=== PATIENT | female | born 1970 | race Caucasian/White ===

== ENCOUNTER 2016-07-16 07:08 | Emergency (ER) | payer OTHER ==
[2016-07-16 07:18] VITALS: BP 159/89; PULSE 85; TEMP 98.1; BMI 24.2
[2016-07-16] MEDS ORDERED: IBUPROFEN 600 MG TABLET (FP) PO ONE ×2 (07:49→08:01)
[2016-07-16] MEDS ORDERED: DIPHTH,PERTUSS(ACELL),TET VAC 0.5 ML VIAL IM ONE (07:49)
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
[2016-07-16] MEDS ORDERED: BACITRACIN 0.9 GM PACKET ONE (08:35)
== END 2016-07-16 09:00 | disposition home or self-care (01) ==
LOC: JER 07:08
PROC: 3E0234Z Introduction of Serum, Toxoid and Vaccine into Muscle, Percutaneous Approach (ICD-10-PCS; principal; 2016-07-16)
DX: S80.02XA Contusion of left knee, initial encounter (principal); V48.4XXA Person boarding or alighting a car injured in noncollision transport accident, initial encounter; Y92.414 Local residential or business street as the place of occurrence of the external cause; Y93.89 Activity, other specified
CPT/HCPCS: 73560-TC-LT; 99282-25

== ENCOUNTER 2017-03-05 02:32 | Emergency (ER) | payer OTHER ==
[2017-03-05 03:25] VITALS: BP 132/92; PULSE 87; BMI 22.1
[2017-03-05] MEDS ORDERED: ONDANSETRON 4 MG/2 ML VIAL IVPUSH ONE (04:06)
[2017-03-05] MEDS ORDERED: SODIUM CHLORIDE 0.9% 1000 ML INFUS.BAG IV ONE (04:06)
[2017-03-05] MEDS ORDERED: ONDANSETRON 4 MG/2 ML VIAL ONE ×2 (04:08)
[2017-03-05 04:23] LABS: BASOPHIL 0.2 % (0-2.0); EOSINOPHIL 0.4 % (0-4.5); MCH 27.6 pg (25.7-33.7); MCHC 33.1 g/dl (32.0-36.0); MEAN CELL VOLUME 83.3 fl (80-96); MEAN PLT VOLUME 8.2 fl (7.5-11.1); NEUTROPHILS 84.2 % (42.8-82.8); PLATELET COUNT 319 K/MM3 (134-434); RDW 13.7 % (11.6-15.6); WHITE BLOOD COUNT 11.5 K/mm3 (4.0-10.0)
[2017-03-05 04:51] LABS: ALBUMIN 3.9 g/dl (3.4-5.0); ALK PHOS 79 U/L (45-117); ANION GAP 9 (8-16); BILIRUBIN,TOTAL 0.4 mg/dL (0.2-1.0); CALCIUM 8.4 mg/dL (8.5-10.1); CO2 28 mmol/L (21-32); CREATININE 0.8 mg/dL (0.55-1.02); GLUCOSE,RANDOM 95 mg/dL (74-106); SGOT/AST 12 U/L (15-37); SGPT/ALT 22 U/L (12-78); TOT PROT 6.6 g/dl (6.4-8.2)
[2017-03-05] MEDS ORDERED: POTASSIUM CHLORIDE TABS 20 MEQ TABLET.ER (FP) PO ONE ×2 (04:54→05:29)
[2017-03-05 05:22] LABS: URINE APPEARANCE SLCLOUDY; URINE BILIRUBIN NEGATIVE (NEGATIVE); URINE BLOOD NEGATIVE (NEGATIVE); URINE COLOR YELLOW; URINE GLUCOSE (UA) NEGATIVE (NEGATIVE); URINE KETONE NEGATIVE (NEGATIVE); URINE LEUK ESTERASE NEGATIVE (NEGATIVE); URINE NITRITE NEGATIVE (NEGATIVE); URINE PROTEIN NEGATIVE (NEGATIVE); URINE UROBILINOGEN NEGATIVE mg/dL (0.2-1.0)
--- NOTE | 2017-03-05 05:33 | PDOC ---
History of Present Illness - General Chief Complaint: Nausea/Vomiting Stated Complaint: VOMITING Time Seen by Provider: 03/05/17 03:15 - History of Present Illness Initial Comments: 03/05/17 05:23 CHIEF COMPLAINT: vomiting HISTORY OF PRESENT ILLNESS: 47 yo F with no PMH presents to ED with vomiting since 1 pm today. Patient reports that "it came out of nowhere" and she lost count of how many times she vomited. She denies any diarrhea, constipation, or rectal bleeding. She denies any fever but reports that she feels "kind of like chills" right now. She states that she ate chicken early this evening but has not been able to keep anything down. Her LMP was approximately 9 years ago. PAST MEDICAL HISTORY: Denies past medical history FAMILY HISTORY: Denies SOCIAL HISTORY:Denies tobacco, alcohol, illicit drug use. SURGICAL HISTORY: Denies ALLERGIES: No known drug allergies REVIEW OF SYSTEMS General/Constitutional: Denies fever or chills. Denies weakness, weight change. HEENT: Denies change in vision. Denies ear pain or discharge. Denies sore throat. Cardiovascular: Denies chest pain or shortness of breath. Respiratory: Denies cough, wheezing, or hemoptysis. Gastrointestinal: Vomiting since this afternoon. Denies diarrhea or constipation. Denies rectal bleeding. Genitourinary: Denies dysuria, frequency, or change in urination. Musculoskeletal: Denies joint or muscle swelling or pain. Denies neck or back pain. Skin and breasts: Denies rash or easy bruising. Neurologic: Denies headache, vertigo, loss of consciousness, or loss of sensation. PHYSICAL EXAM General Appearance: Well-appearing, appropriately dressed. No apparent distress , no intoxication. HEENT: EOMI, PERRLA, normal ENT inspection, normal voice, TMs normal, pharynx normal. No conjunctival pallor. No photophobia, scleral icterus. Neck: Supple. Trachea midline. No tenderness, rigidity, carotid bruit, stridor , lymphadenopathy, or thyromegaly. Respiratory/Chest: Lungs CTAB. No shortness of breath, chest tenderness, respiratory distress, accessory muscle use. No crackles, rales, rhonchi, stridor , wheezing, dullness Cardiovascular: RRR. S1, S2. No JVD, murmur, bradycardia, tachycardia. Vascular Pulses: Dorsalis-Pedis (R): 2+, Dorsalis-Pedis (L): 2+ Gastrointestinal/Abdominal: Normal bowel sounds. Abdomen soft, non-distended. No tenderness or rebound tenderness. No organomegaly, pulsatile mass, guarding , hernia, hepatomegaly, splenomegaly. Lymphatic: No adenopathy, tenderness. Musculoskeletal/Extremities: Normal inspection. FROM of all extremities, normal capillary refill. Pelvis Stable. No CVA tenderness. No tenderness to extremities, pedal edema, swelling, erythema or deformity. Integumentary: Appropriate color, dry, warm. No cyanosis, erythema, jaundice or rash Neurologic: juvenile detention officer II-XII intact. Fully oriented, alert. Appropriate mood/affect. Motor strength 5/5. No appreciable EOM palsy, facial droop or sensory deficit. Past History - Past Medical History Allergies/Adverse Reactions: Allergies Allergy/AdvReac Type Severity Reaction Status Date / Time No Known Allergies Allergy Verified 03/05/17 03:24 Home Medications: Ambulatory Orders Ondansetron [Zofran *Odt*] 8 mg SL BID PRN #14 od.tablet 03/05/17 - Surgical History Cardiac Surgery: Yes (asd repair) - Psycho/Social/Smoking Cessation Hx Anxiety: No Suicidal Ideation: No Smoking History: Never smoked Have you smoked in the past 12 months: No Information on smoking cessation initiated: No Hx Alcohol Use: No Drug/Substance Use Hx: No Substance Use Type: None *Physical Exam - Vital Signs Last Vital Signs Temp Pulse Resp BP Pulse Ox 87 14 132/92 99 03/05/17 03:24 03/05/17 03:24 03/05/17 03:24 03/05/17 03:24 ED Treatment Course - LABORATORY CBC & Chemistry Diagram: 03/05/17 04:15 03/05/17 04:15 - ADDITIONAL ORDERS Additional order review: Laboratory Results 03/05/17 03/05/17 03/05/17 05:12 04:15 04:15 Sodium 142 Potassium 3.3 L Chloride 105 Carbon Dioxide 28 Anion Gap 9 BUN 13 Creatinine 0.8 Creat Clearance w eGFR > 60 Random Glucose 95 Calcium 8.4 L Total Bilirubin 0.4 AST 12 L ALT 22 Alkaline Phosphatase 79 Total Protein 6.6 Albumin 3.9 Lipase 220 Urine Color Yellow Urine Appearance Slcloudy Urine pH 5.0 Urine Protein Negative Urine Glucose (UA) Negative Urine Ketones Negative Urine Blood Negative Urine Nitrite Negative Urine Bilirubin Negative Urine Urobilinogen Negative Ur Leukocyte Esterase Negative 03/05/17 04:15 RBC 4.90 MCV 83.3 MCHC 33.1 RDW 13.7 MPV 8.2 Neutrophils % 84.2 H Lymphocytes % 9.0 Monocytes % 6.2 Eosinophils % 0.4 Basophils % 0.2 - Medications Given in the ED: ED Medications Discontinued Medications Generic Name Dose Route Start Last Admin Trade Name Dodie PRN Reason Stop Dose Admin Ondansetron HCl 8 mg 03/05/17 04:06 03/05/17 04:21 Zofran Injection IVPUSH 03/05/17 04:07 8 mg ONCE ONE Administration Sodium Chloride 1,000 ml 03/05/17 04:06 03/05/17 04:20 Normal Saline - IV 03/05/17 04:07 1,000 ml ONCE ONE Administration Medical Decision Making - Medical Decision Making 03/05/17 05:33 47 yo F with no PMH presents to ED with vomiting since 1 pm today. -CBC, CMP, lipase -UA, Ucx Labs - WBC 11.4, K+ 3.3 K-Dur po *DC/Admit/Observation/Transfer Diagnosis at time of Disposition: Vomiting Qualifiers: Vomiting type: unspecified Vomiting Intractability: non-intractable Nausea presence: with nausea Qualified Code(s): R11.2 - Nausea with vomiting, unspecified - Discharge Dispostion Disposition: HOME Condition at time of disposition: Stable Admit: No - Prescriptions Prescriptions: Ondansetron [Zofran *Odt*] 8 mg SL BID PRN #14 od.tablet PRN Reason: Nausea And/Or Vomiting - Referrals Referrals: Domingo Thibodeaux MD [Primary Care Provider] - Hernesto Bennett MD [Staff Physician] - - Patient Instructions Printed Discharge Instructions: DI for Vomiting -- Adult Additional Instructions: Please take medication as prescribed. Follow up with Dr. Thibodeaux by the end of this week. If you experience persistent vomiting, fever, chills, severe abdominal pain, rectal bleeding, or any new or worsening symptoms, please return to the ER. - Post Discharge Activity Work/School Note: Back to Work
== END 2017-03-05 06:21 | disposition home or self-care (01) ==
LOC: JER 02:32
PROC: 3E033GC Introduction of Other Therapeutic Substance into Peripheral Vein, Percutaneous Approach (ICD-10-PCS; principal; 2017-03-05)
PROC: 3E0337Z Introduction of Electrolytic and Water Balance Substance into Peripheral Vein, Percutaneous Approach (ICD-10-PCS; 2017-03-05)
DX: R11.2 Nausea with vomiting, unspecified (principal); I51.9 Heart disease, unspecified
CPT/HCPCS: 36415; 80053; 81003; 83690; 84703; 85025; 87086; 99282-25

== ENCOUNTER 2017-06-18 18:05 | Emergency (ER) | payer OTHER ==
[2017-06-18 18:19] VITALS: PULSE 100; TEMP 98.5; BMI 22.1
[2017-06-18] MEDS ORDERED: ONDANSETRON 4 MG/2 ML VIAL IVPB ONE (18:28)
[2017-06-18] MEDS ORDERED: SODIUM CHLORIDE 1,000 ML IV STA (18:28)
--- NOTE | 2017-06-18 18:48 | PDOC ---
History of Present Illness - General Chief Complaint: Cold Symptoms Stated Complaint: WEAK BODY ACHES VOMITING Time Seen by Provider: 06/18/17 18:14 - History of Present Illness Initial Comments: 06/18/17 18:50 "The patient is a 47-year-old female, with no significant past medical history, who presents to the ED with nausea, vomiting, body aches, generalized weakness and lightheadedness that began today. Patient reports vomiting 4x today; no blood was noted. She has not been able to keep down any solids or fluids due to the nausea. She also reports chills but denies having a fever. She experienced similar symptoms in the past and visited the ED where she was given zofran and discharged. She denies any recent sick contacts or recent travel. LMP was 10 years ago. She denies any diarrhea or abdominal pain. She denies any urinary symptoms. Denies CP/SOB. Denies GRIMES/neck pain. " Past History - Past Medical History Allergies/Adverse Reactions: Allergies Allergy/AdvReac Type Severity Reaction Status Date / Time No Known Allergies Allergy Verified 06/18/17 18:12 Home Medications: Ambulatory Orders NK [No Known Home Medication] 06/18/17 COPD: Yes - Surgical History Cardiac Surgery: Yes (asd repair) - Suicide/Smoking/Psychosocial Hx Smoking History: Never smoked Have you smoked in the past 12 months: No Information on smoking cessation initiated: No Hx Alcohol Use: No Drug/Substance Use Hx: No Substance Use Type: None Review of Systems - Review of Systems Comments:: 06/18/17 18:49 "GENERAL/CONSTITUTIONAL: No fever or chills. No weakness. HEAD, EYES, EARS, NOSE AND THROAT: No change in vision. No ear pain or discharge. No sore throat. CARDIOVASCULAR: No chest pain or shortness of breath. RESPIRATORY: No cough, wheezing, or hemoptysis. GASTROINTESTINAL: + vomiting, no diarrhea or constipation. GENITOURINARY: No dysuria, frequency, or change in urination. MUSCULOSKELETAL: No joint or muscle swelling or pain. No neck or back pain. SKIN: No rash NEUROLOGIC: No headache, vertigo, loss of consciousness, or change in strength/ sensation. ENDOCRINE: No increased thirst. No abnormal weight change. HEMATOLOGIC/LYMPHATIC: No anemia, easy bleeding, or history of blood clots. ALLERGIC/IMMUNOLOGIC: No hives or skin allergy. " *Physical Exam - Vital Signs Last Vital Signs Temp Pulse Resp BP Pulse Ox 98.5 F 100 H 16 163/100 97 06/18/17 18:07 06/18/17 18:07 06/18/17 18:07 06/18/17 18:07 06/18/17 18:07 - Physical Exam Comments: 06/18/17 18:49 "GENERAL: Awake, alert, and fully oriented, in no acute distress HEAD: No signs of trauma EYES: PERRLA, EOMI, sclera anicteric, conjunctiva clear ENT: Auricles normal inspection, hearing grossly normal, nares patent, oropharynx clear without exudates. Moist mucosa NECK: Nontender, no stepoffs, Normal ROM, supple, no lymphadenopathy, JVD, or masses LUNGS: Breath sounds equal, clear to auscultation bilaterally. No wheezes, and no crackles HEART: Regular rate and rhythm, normal S1 and S2, no murmurs, rubs or gallops ABDOMEN: Soft, nontender, normoactive bowel sounds. No guarding, no rebound. No masses EXTREMITIES: Normal range of motion, no edema. No clubbing or cyanosis. No cords, erythema, or tenderness NEUROLOGICAL: Cranial nerves II through XII intact. 5/5 strength and sensation in all extremities, Normal speech, normal gait, normal cerebellar function SKIN: Warm, Dry, normal turgor, no rashes or lesions noted. " Medical Decision Making - Medical Decision Making 06/18/17 18:46 47 F with no PMH presents to ER with vomiting x 1 day. Likely viral syndrome given associated bodyaches and generalized weakness. Pt with benign abdominal exam in ER. Unlikely to be acute intra-abdominal process. Pt with non-focal neuro exam, making intracranial process unlikely as well. Pt without any chest pain or SOB to suggest ACS. However, will consider r/o with trops if EKG is abnormal. - Labs, lipase, UA, UPT - EKG - IVF, zofran *DC/Admit/Observation/Transfer - Discharge Dispostion Condition at time of disposition: Stable - Referrals - Patient Instructions - Post Discharge Activity
[2017-06-18] MEDS ORDERED: ONDANSETRON 4 MG/2 ML VIAL ONE (18:49)
[2017-06-18 18:53] LABS: PH,URINE 7.5 (4.5-8); URINE APPEARANCE Clear; URINE BILIRUBIN Negative (NEGATIVE); URINE BLOOD Negative (NEGATIVE); URINE GLUCOSE (UA) Negative (NEGATIVE); URINE KETONE Negative (NEGATIVE); URINE LEUK ESTERASE Negative (NEGATIVE); URINE NITRITE Negative (NEGATIVE); URINE UROBILINOGEN 0.2 (0.2-1.0)
[2017-06-18 18:54] LABS: URINE COLOR YELLOW; URINE PROTEIN 2+ (NEGATIVE)
[2017-06-18 18:57] LABS: BASO % 0.7 % (0-2.0); EOS % 0.2 % (0-4.5); MCH 27.5 pg (25.7-33.7); MCHC 32.8 g/dl (32.0-36.0); MEAN CELL VOLUME 83.8 fl (80-96); MEAN PLT VOLUME 8.1 fl (7.5-11.1); PLATELET COUNT 332 K/MM3 (134-434); RDW 13.1 % (11.6-15.6); WHITE BLOOD COUNT 7.8 K/mm3 (4.0-10.8)
[2017-06-18 19:10] LABS: URINE WBC 0-2 (0-5)
[2017-06-18 19:11] LABS: URINE BACTERIA FEW /hpf (NEGATIVE); URINE RBC 0-2 /hpf (0-3)
--- NOTE | 2017-06-18 19:11 | PDOC ---
*Physical Exam - Vital Signs Last Vital Signs Temp Pulse Resp BP Pulse Ox 98.5 F 100 H 16 163/100 97 06/18/17 18:07 06/18/17 18:07 06/18/17 18:07 06/18/17 18:07 06/18/17 18:07 ED Treatment Course - LABORATORY CBC & Chemistry Diagram: 06/18/17 18:45 06/18/17 18:45 - ADDITIONAL ORDERS Additional order review: Laboratory Results 06/18/17 18:45 Urine Color Yellow Urine Appearance Clear Urine pH 7.5 Ur Specific [place] 1.020 Urine Protein 2+ H Urine Glucose (UA) Negative Urine Ketones Negative Urine Blood Negative Urine Nitrite Negative Urine Bilirubin Negative Urine Urobilinogen 0.2 Ur Leukocyte Esterase Negative 06/18/17 18:45 RBC 5.26 H MCV 83.8 MCHC 32.8 RDW 13.1 MPV 8.1 Neutrophils % 89.0 H Lymphocytes % 5.9 L Monocytes % 4.2 Eosinophils % 0.2 Basophils % 0.7 - Medications Given in the ED: ED Medications Discontinued Medications Generic Name Dose Route Start Last Admin Trade Name Freq PRN Reason Stop Dose Admin Ondansetron HCl 4 mg 06/18/17 18:28 06/18/17 19:02 Zofran Injection IVPB 06/18/17 18:29 4 mg ONCE ONE Administration Progress Note - Progress Note Progress Note: Care of this patient was transferred to [facility] from at 1900 hrs. Patient is a 47-year-old female who comes in complaining of one day of nausea, vomiting, generalized weakness and some lightheadedness. A workup is in progress including labs and urinalysis. Patient exam was reported as nontender abdominal exam. Patient is refusing an EKG which was ordered by Dr. Starks. Patient is being hydrated and was given Zofran. 19:50 Patient's labs show a normal white count with a very slight left shift of 89% neutrophils but no bands. Reexamined patient remains nontender abdomen that is normal. Patient's blood work including urinalysis and chemistries is otherwise unremarkable. Patient is tolerating by mouth's given ice chips and some small amount of liquid with no further vomiting. Patient's symptoms are most likely due to a gastroenteritis most likely viral etiology with her normal blood work and nontender abdomen. Patient discharged home will follow-up with her primary care doctor. *DC/Admit/Observation/Transfer Diagnosis at time of Disposition: Viral gastroenteritis - Discharge Dispostion Disposition: HOME Condition at time of disposition: Stable Admit: No - Referrals - Patient Instructions Printed Discharge Instructions: Nausea and Vomiting-Adult Additional Instructions: Clear liquids only for the next 6 hours.. If any further vomiting you can take Zofran 1 tablet as often as 3 times a day After that if you have had no further vomiting you may have bananas, rice, applesauce, or toast. If no further vomiting for another 8 hours you may have regular food. If you vomit again then nothing to eat or drink for 2 hours. then start back with the clear liquids. Return to the emergency department immediately with ANY new, persistent or worsening symptoms. You MUST call and follow up with your doctor tomorrow if not better. Please make sure your doctor reviews the results of your emergency evaluation. Thank you for coming to the Emergency Department today for your care. It was a pleasure to see you today. Please note that your evaluation is INCOMPLETE until you follow-up with your doctor. - Post Discharge Activity
[2017-06-18 19:12] LABS: ALBUMIN 4.2 g/dl (3.5-5.0); ALK PHOS 81 U/L (32-92); ANION GAP 6 (8-16); BILIRUBIN,TOTAL 0.9 mg/dl (0.2-1.0); CALCIUM 8.8 mg/dl (8.4-10.2); CO2 26 mmol/L (22-28); CREATININE 0.7 mg/dl (0.6-1.3); GLUCOSE,RANDOM 119 mg/dl (74-106); SGOT/AST 29 U/L (10-42); SGPT/ALT 35 U/L (10-40); TOT PROT 7.2 g/dl (6.4-8.3)
[2017-06-18 19:37] VITALS: BP 162/93
== END 2017-06-18 20:07 | disposition home or self-care (01) ==
LOC: FER 18:05
PROC: 3E033GC Introduction of Other Therapeutic Substance into Peripheral Vein, Percutaneous Approach (ICD-10-PCS; principal; 2017-06-18)
PROC: 3E0337Z Introduction of Electrolytic and Water Balance Substance into Peripheral Vein, Percutaneous Approach (ICD-10-PCS; 2017-06-18)
DX: A08.4 Viral intestinal infection, unspecified (principal); J44.9 Chronic obstructive pulmonary disease, unspecified
CPT/HCPCS: 36415; 80053; 81003; 81015; 83690; 84703; 85025; 87086; 99283-25